=== PATIENT | female | born 1985 | race Two or more races ===

== ENCOUNTER 2022-06-01 08:23 | Day surgery (SDC) | payer OTHER ==
[~2022-06-01] VITALS: Ht 160 cm; Wt 86.2 kg
[~2022-06-01 08:23] MED LIST: BREO ELLIPTA 21 EACH IH; D3 + K2 DOTS 11 EACH PO; KEPPRA1000 MG PO; SINGULAIR10 MG PO; VITAMIN C500 M6 PO; ZYRTEC10 M3 PO
== END 2022-06-01 15:40 | disposition home or self-care (01) ==
LOC: CIR.AMB 08:23
PROVIDERS: ATTEND Orthopaedic Surgery Hand Surgery
DX: D16.11 Benign neoplasm of short bones of right upper limb (principal); Z91.013 Allergy to seafood; Z91.041 Radiographic dye allergy status; E16.2 Hypoglycemia, unspecified; D64.89 Other specified anemias; Z20.822 Contact with and (suspected) exposure to COVID-19